=== PATIENT | female | born 1965 | race Caucasian/White ===

== ENCOUNTER 2022-10-06 06:18 | Inpatient (IN) | payer MEDICAID, OTHER ==
[~2022-10-06] VITALS: Ht 167.6 cm; Wt 69.9 kg
[~2022-10-06 06:18] MED LIST: CYCL-448 PO; GABA-1181 PO; LURA40TA2 PO; OXYC-490 PO; SERT-162 PO
[2022-10-06 06:48] LABS: COVID AG,FIA SOURCE NASOPHARYNGEAL
[2022-10-06 06:51] LABS: BASOPHILS % (AUTO) 0.9 % (0.0-2.0); EOSINOPHILS % (AUTO) 1.4 % (1.0-6.0); HEMATOCRIT 36.8 % (36-46); HEMOGLOBIN 12.4 g/dL (12.0-16.0); LYMPHOCYTES # (AUTO) 1.4 K/uL (1.0-4.8); MEAN CORPUSCULAR HEMOGLOBIN 30.1 pg (26.0-34.0); MEAN CORPUSCULAR HGB CONC 33.7 G/dL (31.0-37.0); MEAN CORPUSCULAR VOLUME 89 fL (80-100); MONOCYTES # (AUTO) 0.5 K/uL (0.1-1.0); MONOCYTES % (AUTO) 7.8 % (2.0-9.0); NEUTROPHILS # (AUTO) 4.9 K/uL (1.8-7.7); NEUTROPHILS % (AUTO) 69.9 % (40.0-70.0); PLATELET COUNT (AUTO) 263 K/uL (150-450); RED BLOOD CELL COUNT(AUTO) 4.12 MIL/uL (4.00-5.20); RED CELL DISTRIBUTION WIDTH 13.2 % (11.5-14.5)
[2022-10-06 07:02] LABS: ANION GAP 8 mmol/L (8-16); CALCIUM, TOTAL 9.4 mg/dL (8.8-10.5); CARBON DIOXIDE 29 mmol/L (22-29); CHLORIDE 102 mmol/L (98-107); CREATININE 0.91 mg/dL (0.60-1.30); GLOMERULAR FILTR. RATE CALC > 60 mL/min (>60); GLUCOSE,RANDOM 95 mg/dL (70-110); POTASSIUM 3.9 mmol/L (3.5-5.1); SODIUM SERUM 139 mmol/L (136-145); UREA NITROGEN, BLOOD 21 mg/dL (7-18)
[2022-10-06 07:16] LABS: ALANINE AMINOTRANSFERASE 18 U/L (12-78); ALBUMIN 4.6 g/dL (3.4-5.0); ALKALINE PHOSPHATASE 60 U/L (46-116); ASPARTATE AMINOTRANSFERASE 16 U/L (15-37); BILIRUBIN,TOTAL 0.3 mg/dL (0.1-1.0); THYROID STIMULATING HORMONE 1.47 uIU/mL (0.36-3.74); TOTAL PROTEIN, SERUM 8.1 g/dL (6.4-8.2)
[2022-10-06] MEDS ORDERED: HydrOXYzine HCL 25 MG TABLET PO ONE (08:30)
[2022-10-06] MEDS ORDERED: OLANZapine 5 MG RAPDIS TABLET PO ONE (08:30)
[2022-10-06] MEDS ORDERED: OLANZapine 5 MG RAPDIS TABLET PO PRN (09:45)
[2022-10-06] MEDS ORDERED: LORazepam 2 MG TABLET PO PRN (09:45)
[2022-10-06 11:36] VITALS: BP 107/73
[2022-10-06 21:56] VITALS: BP 106/58
[2022-10-07 08:30] VITALS: BP 96/53
[2022-10-07] MEDS: SERTRALINE HCL 100 MG TABLET PO SCH (10:00)
[2022-10-07] MEDS: GABAPENTIN 300 MG CAPSULE PO SCH ×2 (12:13→16:24)
[2022-10-07] MEDS ORDERED: DOCUSATE SODIUM 100 MG CAPSULE PO PRN (15:45)
[2022-10-07] MEDS ORDERED: ACETAMINOPHEN 325 MG TABLET PO PRN (15:45)
[2022-10-07] MEDS ORDERED: IBUPROFEN 400 MG TABLET PO PRN (15:45)
[2022-10-07] MEDS ORDERED: GuaiFENesin/D-METHORPHAN [SUGAR-FREE] 200-20MG/10 ML SYRUP UDCUP PO PRN (15:45)
[2022-10-07] MEDS ORDERED: MAGNESIUM HYDROXIDE SUSPENSION 30 ML UDCUP PO PRN (15:45)
[2022-10-07] MEDS ORDERED: LOPERAMIDE HCL 2 MG CAPSULE PO PRN (15:45)
[2022-10-07] MEDS ORDERED: ONDANSETRON HCL 4 MG TABLET PO PRN (15:45)
[2022-10-07] MEDS ORDERED: NICOTINE 14 MG/24 HOUR PATCH TD PRN (15:45)
[2022-10-07] MEDS ORDERED: PETROLATUM,WHITE 28 GM JELLY TP PRN (15:45)
[2022-10-07] MEDS ORDERED: CloNIDine HCL 0.1 MG TABLET PO PRN (15:45)
[2022-10-07] MEDS ORDERED: ALBUTEROL SULFATE HFA 90 MCG/PUFF 8 GM INHALER IH PRN (15:45)
[2022-10-07] MEDS ORDERED: MAG HYDROX/AL HYDROX/SIMETH ES 30 ML SUSPENSION UDCUP PO PRN (15:45)
[2022-10-07] MEDS: LURASIDONE HCL 20 MG TABLET PO SCH (16:24)
[2022-10-07 18:22] VITALS: BP 91/55
[2022-10-08 00:10] VITALS: BP 91/58
[2022-10-08] MEDS: LURASIDONE HCL 20 MG TABLET PO SCH ×2 (06:44→17:13)
[2022-10-08 08:32] VITALS: BP 91/66
[2022-10-08] MEDS: GABAPENTIN 300 MG CAPSULE PO SCH ×3 (08:48→15:54)
[2022-10-08] MEDS: SERTRALINE HCL 100 MG TABLET PO SCH (08:48)
[2022-10-08] MEDS: CYCLOBENZAPRINE HCL 10 MG TABLET PO SCH (08:53)
[2022-10-08 12:45] VITALS: BP 110/75
[2022-10-08 16:10] VITALS: BP 115/65
[2022-10-09] MEDS: LURASIDONE HCL 20 MG TABLET PO SCH ×2 (06:44→16:10)
[2022-10-09] MEDS: GABAPENTIN 300 MG CAPSULE PO SCH ×4 (08:19→16:10)
[2022-10-09] MEDS: CYCLOBENZAPRINE HCL 10 MG TABLET PO SCH (08:19)
[2022-10-09] MEDS: SERTRALINE HCL 100 MG TABLET PO SCH (08:19)
[2022-10-09 08:30] VITALS: BP 102/65
[2022-10-09 16:00] VITALS: BP 109/62
[2022-10-09 20:30] VITALS: BP 96/61
[2022-10-10] MEDS: LURASIDONE HCL 20 MG TABLET PO SCH ×2 (06:45→16:44)
[2022-10-10 08:30] VITALS: BP 92/56
[2022-10-10] MEDS: GABAPENTIN 300 MG CAPSULE PO SCH ×3 (08:37→16:44)
[2022-10-10] MEDS: CYCLOBENZAPRINE HCL 10 MG TABLET PO SCH (08:37)
[2022-10-10] MEDS: SERTRALINE HCL 100 MG TABLET PO SCH (08:37)
[2022-10-10 17:37] VITALS: BP 98/59
[2022-10-10 20:29] VITALS: BP 105/70
[2022-10-11] MEDS: ZOLPIDEM TARTRATE 10 MG TABLET PO PRN ×2 (00:02→23:50)
[2022-10-11] MEDS: LURASIDONE HCL 20 MG TABLET PO SCH ×2 (06:40→17:04)
[2022-10-11] MEDS: CYCLOBENZAPRINE HCL 10 MG TABLET PO SCH (08:23)
[2022-10-11] MEDS: SERTRALINE HCL 100 MG TABLET PO SCH (08:23)
[2022-10-11] MEDS: GABAPENTIN 300 MG CAPSULE PO SCH ×3 (08:24→17:04)
[2022-10-11 08:28] VITALS: BP 99/70
[2022-10-11 16:07] VITALS: BP 98/60
[2022-10-12] MEDS: LURASIDONE HCL 20 MG TABLET PO SCH (06:35)
[2022-10-12 08:36] LABS: COVID AG,FIA SOURCE NASAL SWAB
[2022-10-12 09:07] VITALS: BP 99/69
[2022-10-12] MEDS: SERTRALINE HCL 100 MG TABLET PO SCH (09:35)
[2022-10-12] MEDS: GABAPENTIN 300 MG CAPSULE PO SCH ×2 (09:35→12:08)
[2022-10-12] MEDS: CYCLOBENZAPRINE HCL 10 MG TABLET PO SCH (09:37)
[2022-10-12] MEDS ORDERED: LURA20TA PO (14:16)
[2022-10-12] MEDS ORDERED: GABA-1181 PO (14:16)
[2022-10-12] MEDS ORDERED: SERT-440 PO (14:16)
== END 2022-10-12 15:21 | disposition home or self-care (01) | DRG 750 ==
LOC: EMS 06:20 → 3EI 10:54
PROVIDERS: ADMIT Psychiatry & Neurology Child & Adolescent Psychiatry; ATTEND Psychiatry & Neurology Child & Adolescent Psychiatry
DX: F20.9 Schizophrenia, unspecified (principal); R45.850 Homicidal ideations; G89.4 Chronic pain syndrome; M19.90 Unspecified osteoarthritis, unspecified site; F10.10 Alcohol abuse, uncomplicated; F41.9 Anxiety disorder, unspecified; Z91.199 Patient's noncompliance with other medical treatment and regimen due to unspecified reason; Z20.822 Contact with and (suspected) exposure to COVID-19; Z79.899 Other long term (current) drug therapy; Z88.8 Allergy status to other drugs, medicaments and biological substances; Z88.5 Allergy status to narcotic agent
CPT/HCPCS: 80053; 84443; 85025; 99285; G0480; Q9967